=== PATIENT | female | born 1985 | race African-American/Black ===

== ENCOUNTER 2016-10-04 10:18 | Emergency (ER) | payer BC ==
[~2016-10-04] VITALS: Ht 165.1 cm; Wt 56.8 kg
[~2016-10-04 10:18] MED LIST: IBUP600 PO
[2016-10-04 10:21] VITALS: BP 160/88; PULSE 68; RESP 16; TEMP 98.1; O2SAT 98
[2016-10-04 11:45] LABS: AUTOMATED NEUTROPHIL # 2.3 TH/MM3 (1.8-7.7); BASOPHIL % 0.4 % (0.0-2.0); EOSINOPHIL # 0.2 TH/MM3 (0-0.4); EOSINOPHIL % 3.9 % (0.0-4.0); HEMATOCRIT 34.9 % (35.0-46.0); HEMO FLAGS DIFF FINAL; LYMPH % 43.9 % (9.0-44.0); LYMPHOCYTE # 2.3 TH/MM3 (1.0-4.8); MEAN CELL VOLUME 93.9 FL (80.0-100.0); MEAN CORPUSCULAR HEMOGLOBIN 31.2 PG (27.0-34.0); MEAN CORPUSCULAR HGB CONC 33.3 % (32.0-36.0); MONO % 7.9 % (0.0-8.0); NEUT % 43.9 % (16.0-70.0); PLATELET COUNT 236 TH/MM3 (150-450); RED BLOOD COUNT 3.72 MIL/MM3 (4.00-5.30); RED CELL DISTRIBUTION WIDTH 13.2 % (11.6-17.2); WHITE BLOOD COUNT 5.2 TH/MM3 (4.0-11.0)
[2016-10-04 12:04] LABS: ANION GAP 6 MEQ/L (5-15); BLOOD UREA NITROGEN 10 MG/DL (7-18); CHLORIDE 105 MEQ/L (98-107); GLOMERULAR FILTRATION RATE 127 ML/MIN (>89); POTASSIUM 3.8 MEQ/L (3.5-5.1); SODIUM (NA) 140 MEQ/L (136-145)
[2016-10-04 12:25] LABS: CREATINE KINASE 83 U/L (26-192)
--- NOTE | 2016-10-05 17:08 | EKG ---
Date Performed: 10/04/2016 Time Performed: 11:08:49 PTAGE: 30 years EKG: Sinus rhythm WITH SINUS ARRHYTHMIA NORMAL ECG NO PREVIOUS TRACING DOCTOR: Scot Daniels Interpretating Date/Time 10/05/2016 17:03:16
== END 2016-10-04 14:51 | disposition left against medical advice (07) ==
LOC: NETRI 10:18
DX: R07.9 Chest pain, unspecified (principal)
CPT/HCPCS: 80048; 82550; 84484; 85025; 93005; 99281